=== PATIENT | male | born 1960 | race Two or more races ===

== ENCOUNTER 2019-10-24 18:03 | Emergency (ER) | payer MEDICAID ==
[~2019-10-24] VITALS: Ht 182.9 cm; Wt 91.9 kg
--- NOTE | 2019-10-24 19:06 | NUR ---
PT WHEELED BACK TO ROOM, NAD, RESP WNL, VSS, SKIN OCLOR WNL WARM AND DRY, RESTING ON GURNEY, CHANGED INTO GOWN, LABS SENT, WCTM. CALL LIGHT ON LAP, WAITING FOR LAB RESULTS.
[2019-10-24 19:17] LABS: BASOPHILS # (AUTO) 0.03 x10^3/uL (0-0.1); BASOPHILS % (AUTO) 0 % (0-1); EOSINOPHILS # (AUTO) 0.07 x10^3/uL (0-0.4); EOSINOPHILS % (AUTO) 1 % (1-7); LYMPHOCYTES % (AUTO) 21 % (22-44); MD NO; MEAN CORPUSCULAR HEMOGLOBIN 31.1 pg (27.5-34.5); MEAN CORPUSCULAR VOLUME 91.6 fL (81-97); MEAN PLATELET VOLUME 10.4 fL (7.4-10.4); MONOCYTES # (AUTO) 0.43 x10^3/uL (0.2-0.8); MONOCYTES % (AUTO) 5 % (2-9); NEUTROPHILS # (AUTO) 5.87 x10^3/uL (1.8-6.8); NEUTROPHILS % (AUTO) 73 % (42-75); PLATELET COUNT 166 x10^3/uL (130-400); RED BLOOD COUNT 4.87 x10^6/uL (4.38-5.82); RED CELL DISTRIBUTION WIDTH 15.3 % (9.4-14.8)
[2019-10-24 19:24] LABS: ALANINE AMINOTRANSFERASE 104 U/L (12-78); ANION GAP 12 mmol/L (5-15); CALCIUM 9.5 mg/dL (8.5-10.1); CHLORIDE 109 mmol/L (98-107); CREATININE 1.15 mg/dL (0.7-1.3)
[2019-10-24 19:29] LABS: ALKALINE PHOSPHATASE 113 U/L (45-117); BILIRUBIN,TOTAL 0.9 mg/dL (0.2-1.0); TOTAL PROTEIN 8.1 g/dL (6.4-8.2); TROPONIN I < 0.015 ng/mL (0.000-0.045)
[2019-10-24 20:08] VITALS: BP 156/106
--- NOTE | 2019-10-24 20:08 | NUR ---
PT RESTING IN GURNEY, NO CHANGE IN CONDITION, DENIES ADDITIONAL NEEDS AT THIS TIME. WCTM, WAITING FOR RECHECK.
--- NOTE | 2019-10-24 21:05 | NUR ---
Patient given discharge instructions and they have confirmed that they understand the instructions. Patient ambulatory with steady gait. Denies additional questions at this time, NAD, RESP WNL, VSS, MAEx4. Pt left with all belongings.
== END 2019-10-24 21:11 | disposition home or self-care (01) ==
LOC: ED 21:07
DX: R42 Dizziness and giddiness (principal); I10 Essential (primary) hypertension; R73.9 Hyperglycemia, unspecified; R94.31 Abnormal electrocardiogram [ECG] [EKG]
CPT/HCPCS: 36415; 80053; 84484; 85025; 93005; 99284

== ENCOUNTER 2019-11-26 04:16 | Inpatient (IN) | payer MEDICAID ==
[~2019-11-26] VITALS: Ht 182.9 cm; Wt 90.0 kg
--- NOTE | 2019-11-26 04:27 | NUR ---
Pt declined blanket, resting quietly and comfortably at this time.
[2019-11-26] MEDS ORDERED: ONDANSETRON ODT 4 MG ONE (04:57)
[2019-11-26] MEDS ORDERED: THIAMINE 100MG TABLET ONE (04:57)
[2019-11-26] MEDS ORDERED: ONDANSETRON ODT 4 MG PO ONE (05:00)
[2019-11-26] MEDS ORDERED: THIAMINE 100MG TABLET PO ONE (05:00)
[2019-11-26 05:30] LABS: ALANINE AMINOTRANSFERASE 130 U/L (12-78); ALBUMIN 3.1 g/dL (3.4-5.0); ANION GAP 6 mmol/L (5-15); CALCIUM 7.9 mg/dL (8.5-10.1); CHLORIDE 93 mmol/L (98-107); CREATININE 0.99 mg/dL (0.7-1.3)
[2019-11-26 05:32] LABS: ALKALINE PHOSPHATASE 90 U/L (45-117); BILIRUBIN,TOTAL 1.9 mg/dL (0.2-1.0); TOTAL PROTEIN 7.4 g/dL (6.4-8.2)
[2019-11-26 06:23] LABS: BASOPHILS # (AUTO) 0.02 x10^3/uL (0-0.1); BASOPHILS % (AUTO) 0 % (0-1); EOSINOPHILS % (AUTO) 0 % (1-7); LYMPHOCYTES # (AUTO) 1.02 x10^3/uL (1-3.4); LYMPHOCYTES % (AUTO) 25 % (22-44); MD SCAN; MEAN CORPUSCULAR HEMOGLOBIN 30.3 pg (27.5-34.5); MEAN CORPUSCULAR HGB CONC 34.1 g/dL (33.2-36.2); MEAN CORPUSCULAR VOLUME 88.8 fL (81-97); MONOCYTES # (AUTO) 0.49 x10^3/uL (0.2-0.8); MONOCYTES % (AUTO) 12 % (2-9); NEUTROPHILS # (AUTO) 2.65 x10^3/uL (1.8-6.8); NEUTROPHILS % (AUTO) 64 % (42-75); PLATELET COUNT 58 x10^3/uL (130-400); RED BLOOD COUNT 5.28 x10^6/uL (4.38-5.82)
[2019-11-26] MEDS ORDERED: SODIUM CHLORIDE 0.9% 1,000ML IVBOLUS ONE (06:30)
[2019-11-26] MEDS ORDERED: POTASSIUM CHLORIDE 40 MEQ in SODIUM CHLORIDE 0.9% 500 ML IV ONE (06:30)
[2019-11-26 06:41] LABS: INTERNATIONAL NORMALIZED RATIO 1.16 (0.93-1.1); PROTHROMBIN TIME 12.3 Seconds (9.6-11.5)
--- NOTE | 2019-11-26 07:02 | NUR ---
Report given to Jihan W[place]
--- NOTE | 2019-11-26 07:24 | NUR ---
RECEIVED REPORT FROM TIFFANIE MINAYA RN. PT RESTING ON [employer]UST[employer]. JOSE MARIA. PROJECT DEVELOPMENT DIRECTOR APPLIED. VSS. IVF INITIATED. ALL QUESTIONS ANSWERED. PT AWARE OF ADMIT AND AGREEABLE TO THIS. PT DBP NOTED TO BE HIGH. PT DECLINES USE OF ANY HTN MEDS. ERP TO BE NOTIFIED.
[2019-11-26] MEDS ORDERED: HEPARIN 5,000 UNITS/ML, 1ML SQ SCH (07:30)
[2019-11-26] MEDS ORDERED: LORazepam 2 MG/ML, 1ML IV PRN ×3 (07:30)
[2019-11-26] MEDS ORDERED: LORazepam 0.5MG TABLET PO PRN (07:30)
[2019-11-26] MEDS ORDERED: LORazepam 1MG TABLET PO PRN (07:30)
[2019-11-26] MEDS ORDERED: ONDANSETRON ODT 4 MG PO PRN (07:30)
[2019-11-26] MEDS ORDERED: ONDANSETRON 2MG/ML, 2ML IVPush PRN (07:30)
--- NOTE | 2019-11-26 08:00 | NUR ---
SPOKE W/ DR. OG IN REGARDS TO PT'S BP. PER H START W/ ATIVAN AND ASSESS BP AFTER.
[2019-11-26] MEDS ORDERED: LORazepam 2 MG/ML, 1ML ONE (08:04)
--- NOTE | 2019-11-26 08:16 | NUR ---
[facility]. MEDICATED PER JUL.
[2019-11-26 08:19] LABS: C-REACTIVE PROTEIN, QUANT 5.8 mg/dL (0.02-0.49)
[2019-11-26] MEDS ORDERED: HEPARIN 5,000 UNITS/ML, 1ML ONE (08:26)
[2019-11-26 08:46] LABS: MICROSCOPIC AUTO
--- NOTE | 2019-11-26 09:08 | NUR ---
CALLED AND SPOKE W/ HOUSEKEEPING AND REQUESTING HOSPITAL BED. PER JOHANA IN HOUSEKEEPING NO HOSPITAL BEDS AT THIS TIME. WILL LOOK FOR ONE TO SEND TO ER.
--- NOTE | 2019-11-26 09:49 | NUR ---
PT RESTING ON GURNEY. NADN. BARNES.
[2019-11-26] MEDS ORDERED: NS + 40MEQ KCL 1,000 ML IV ONE (10:53)
[2019-11-26] MEDS: NS + 40MEQ KCL 1,000 ML IV SCH (11:15)
[2019-11-26] MEDS ORDERED: methylPREDNISolone SOD SUCC 40 MG/ML IV SCH (11:30)
[2019-11-26] MEDS ORDERED: ENOXAPARIN 100 MG/ML ONE (11:35)
[2019-11-26] MEDS ORDERED: methylPREDNISolone SOD SUCC 40 MG/ML ONE (11:35)
--- NOTE | 2019-11-26 11:51 | NUR ---
PT RECEIVED HEPARIN 5000 UNITS SQ THIS AM. PT HAS NEW ORDERS FOR LOVENOX WEIGHT BASED. CALLED AND SPOKE W/ NICKOLAS CRUZ IN REGARDS TO HEPARIN DOSE AND LOVENOX ADMIN. PER PHARMD OKAY TO START LOVENOX NOW.
[2019-11-26] MEDS ORDERED: ENOXAPARIN 100 MG/ML SQ SCH ×2 (12:00→22:00)
--- NOTE | 2019-11-26 12:20 | NUR ---
CALLED AND SPOKE W/ [facility] DR. OG IN REGARDS TO LOVENOX DOSAGE. PER [facility] GIVE SECONDARY TO LAB WORK THAT SHOWS HIGH D-DIMER, HIGH PROCALCITONIN, AND MORE ABNORMAL BLOODWORK. PER [facility] NO NEED FOR CTA AT THIS TIME SECONDARY TO HIGH D-DIMER PT IS NOT SHOWING S/SX SOB.
--- NOTE | 2019-11-26 12:21 | NUR ---
CALLED JOHANA IN HOUSEKEEPING WHO STATES SHE IS STILL LOOKING FOR A HOSPITAL BED FOR PT. NO AVAILABLE HOSPITAL BEDS NOTED ON ER FLOOR.
--- NOTE | 2019-11-26 12:57 | NUR ---
PT'S DBP REMAINS HIGH. DR. OG NOTIFIED OF CIWA SCORE OF [address] EL NEW ORDERS FOR HYDRALAZINE 10 MG PO TID TO START NOW. READ BACK TO [facility].
--- NOTE | 2019-11-26 13:20 | NUR ---
PT MOVED FROM [facility] TO HOSPITAL BED. PT RESTING IN BED.
--- NOTE | 2019-11-26 13:32 | NUR ---
PT MEDICATED WITH HYDRALAZINE ORDERED.
--- NOTE | 2019-11-26 14:14 | NUR ---
PT RESTING IN BED. NADN. VSS. BP MUCH IMPROVED AFTER [employer]' COORDINATOR.
--- NOTE | 2019-11-26 14:58 | NUR ---
REPORT GIVEN TO KOTA COPELAND RN. ALL QUESTIONS ANSWERED. AWAITING PT TRANSPORT.
[2019-11-26 15:50] VITALS: BP 126/86
[2019-11-26 16:09] VITALS: BP 127/85
[2019-11-26 20:50] VITALS: BP 130/82
[2019-11-27 00:18] VITALS: BP 126/84
[2019-11-27] MEDS: NS + 40MEQ KCL 1,000 ML IV SCH (05:22)
[2019-11-27 08:00] VITALS: BP 149/97
[2019-11-27] MEDS ORDERED: LORazepam 2 MG/ML, 1ML IVPush PRN (08:00)
[2019-11-27 08:54] LABS: ALANINE AMINOTRANSFERASE 86 U/L (12-78); ALBUMIN 2.8 g/dL (3.4-5.0); ANION GAP 7 mmol/L (5-15); CALCIUM 8.1 mg/dL (8.5-10.1); CHLORIDE 101 mmol/L (98-107); CREATININE 0.76 mg/dL (0.7-1.3)
[2019-11-27 08:57] LABS: ALKALINE PHOSPHATASE 76 U/L (45-117); BILIRUBIN,TOTAL 1.7 mg/dL (0.2-1.0); TOTAL PROTEIN 6.9 g/dL (6.4-8.2)
[2019-11-27] MEDS ORDERED: THIAMINE 100MG TABLET PO SCH (09:00)
[2019-11-27] MEDS ORDERED: THIAMINE 200 MG in SODIUM CHLORIDE 0.9% 50 ML IV SCH (09:00)
[2019-11-27 09:20] LABS: MEAN CORPUSCULAR HEMOGLOBIN 30.4 pg (27.5-34.5); MEAN CORPUSCULAR HGB CONC 33.6 g/dL (33.2-36.2); MEAN CORPUSCULAR VOLUME 90.6 fL (81-97); MEAN PLATELET VOLUME 8.7 fL (7.4-10.4); PLATELET COUNT 69 x10^3/uL (130-400); RED BLOOD COUNT 4.97 x10^6/uL (4.38-5.82); RED CELL DISTRIBUTION WIDTH 14.5 % (9.4-14.8)
[2019-11-27 09:23] LABS: BASOPHILS # (AUTO) 0.02 x10^3/uL (0-0.1); BASOPHILS % (AUTO) 0 % (0-1); EOSINOPHILS # (AUTO) 0.01 x10^3/uL (0-0.4); EOSINOPHILS % (AUTO) 0 % (1-7); LYMPHOCYTES # (AUTO) 1.43 x10^3/uL (1-3.4); LYMPHOCYTES % (AUTO) 27 % (22-44); MD SCAN; MONOCYTES # (AUTO) 0.73 x10^3/uL (0.2-0.8); MONOCYTES % (AUTO) 14 % (2-9); NEUTROPHILS # (AUTO) 3.08 x10^3/uL (1.8-6.8); NEUTROPHILS % (AUTO) 59 % (42-75)
[2019-11-27] MEDS ORDERED: POTASSIUM CHLORIDE 20 MEQ TAB.ER.PRT PO ONE (10:00)
[2019-11-27] MEDS: CHLORDIAZEPOXIDE 25 MG CAPSULE PO SCH ×4 (10:22→20:09)
[2019-11-27] MEDS ORDERED: MAGNESIUM SULFATE PMX 2GM/50ML 50 ML IV ONE (10:30)
[2019-11-27 13:15] VITALS: BP 149/94
[2019-11-27 16:38] VITALS: BP 141/99
[2019-11-27 20:02] VITALS: BP 139/9
[2019-11-28 01:13] VITALS: BP 139/94
[2019-11-28] MEDS: CHLORDIAZEPOXIDE 25 MG CAPSULE PO SCH (06:06)
== END 2019-11-28 10:09 | disposition home or self-care (01) | DRG 641 ==
LOC: ED 04:39 → EDIP 06:42 → ICU 15:15
PROVIDERS: ADMIT Internal Medicine; ATTEND Internal Medicine
DX: E87.1 Hypo-osmolality and hyponatremia (principal); F10.239 Alcohol dependence with withdrawal, unspecified; R17 Unspecified jaundice; I47.2 Ventricular tachycardia; E83.42 Hypomagnesemia; E83.52 Hypercalcemia; E87.6 Hypokalemia; D69.59 Other secondary thrombocytopenia; I10 Essential (primary) hypertension; G47.00 Insomnia, unspecified; Z83.3 Family history of diabetes mellitus; Z90.49 Acquired absence of other specified parts of digestive tract; Z20.828 Contact with and (suspected) exposure to other viral communicable diseases
CPT/HCPCS: 36415; 70450; 71046; 80053; 81001; 82728; 83615; 83735; 84100; 84145; 85025; 85379; 85610; 86140; 87081; 87635; 93005; 96365; 96366; 96375; G0378; J1644; J1650; J3411; J3480; Q0162; J2060; J2920; J3475; J7030; J7040